=== PATIENT | female | born 2000 | race Hispanic/Latino ===

== ENCOUNTER 2022-04-10 20:42 | Emergency (ER) | payer OTHER ==
--- OUTSIDE RECORDS SUMMARY | 2022-04-10 20:57 | XMS REPORT | Continuity of Care Document ---
:2000 Author Organization [facility] [place] t Address [address] [place] [address] Care Team Providers Name Role Phone Pcp, Patient Does Not Have A Primary Care Physician [phone] Thien Lenz Attending Clinician Nurse, [facility] Exp [facility] Obgyn Attending Clinician Unavail able THIEN BORDEN Attending Clinician Unavailable Doctor Unassigned, [place] Attending Clinician Unavailable ANAYELI HUNG Attending Clinician Unavailable JENNIFER JULIO Attending Clinician Unavailable Rissa Fuentes DO Attending Clinician Jennifer Julio MD Attending Clinician Loree Goncalves MD Attending Clinician Romy Matias MD Attending Clinician RADHA VASQUEZ Attending Clinician Unavailable Radha Bullock Attending Clinician JOSE ALEAJNDRO HESS Attending Clinician Unavailable JOSE ALEJANDRO HESS Attending Clinician Unavailable Jose Alejandro Hess MD Attending Clinician ELDA ADHIKARI Attending Clinician Unavailable Elda Adhikari MD Attending Clinician Lab, [facility] Attending Clinician Unavailable Akinsidayna WHSHERRIEP, Anayeli C Attending Clinician Ultrasound, Ang-Mfm Attending Clinician Unavailable Herb La MD Attending Clinician HERB LA Attending Clinician Unavailable SHELBY HUTCHINSON Attending Clinician Unavailable Shelby Hutchinson MD Attending Clinician Ezequiel Jenkins MD Attending Clinician [phone] EZEQUIEL JENKINS Attending Clinician Unavailable Nurse, Adc Pob Immunization Attending Clinician Unavailable Jordan Gama DO Attending Clinician JORDAN GAMA Attending Clinician Unavailable Lucy Gama MD Attending Clinician Paulo Aviles DO Attending Clinician JENNIFER JULIO Admitting Clinician Unavailable Jennifer Julio MD Admitting Clinician JOSE ALEJANDRO HESS Admitting Clinician Unavailable Jose Alejandro Hess MD Admitting Clinician ELDA ADHIKARI Admitting Clinician Unavailable Elda Adhikari MD Admitting Clinician SHELBY HUTCHINSON Admitting Clinician Unavailable Shelby Hutchinson MD Admitting Clinician Payers Payer Name Policy Type Policy Number Effective Date Expiration Date S [facility] MEDICAID PENDING PENDING 2020 00:00:00 [place] [id number] 2020 00:00:00 Problems Condition Condition Condition Status Onset Resolution Last Treating Co mments Source Name Details Category Date Date Treatment Clinician Date Depression Depression Disease Active U nivers , , 3-16 ity of unspecifie unspecifie 00:00: Terrance rosenbaum d 00 Medical depression depression Br anch type type BMI BMI Disease Active Univers 33.0-33.9, 33.0-33.9, 2-28 it y of adult adult 00:00: [place] 00 Medical Branch Encounter Encounter Disease Active Uni vers for for 2-28 ity of initial initial 00:00: [place] prescripti prescripti 00 Me dical on of on of Branch vaginal vaginal ring ring hormonal hormonal contracept contracept ninfa ninfa Obstetrica Obstetrica Disease Active 2020-05 U nivers l l 2-27 [place] of laceration [place] [facility] Disease Active 2020-05 Univers (normal (normal 2-27 ity of spontaneou spontaneou [place] vaginal 00 [facility] delivery) delivery) Bran ch Single Single Disease Active 2020-05 Univers live live 2-27 ity of 00:00: [address] Anemia, Anemia, Disease Active 2020-05 Univers 2-26 it y of 00:00: [address] 39 weeks 39 weeks Disease Active 2020-05 Unive rs gestation gestation 2-24 ity of of of 00:00: [place] 00 [facility] UTI UTI Disease Active Overview: Univer s (urinary (urinary 12-02 Formattin ity of tract tract 00:00: g of this [place] infection) infection) 00 note Me dical during during might be Branch different from the original. neg cb Chlamydia Chlamydia Disease Active Overview: Univers infection infection 12-01 Formattin i ty of during during 00:00: g of this [place] 00 note [facility] might be Branch different from the original. Neg cb Anemia of Anemia of Disease Active Uni vers mother in mother in 11-30 ity of , , [place] antepartum antepartum 00 Me dical Branch Rubella Rubella Disease Active Overview: Univ ers non-immune non-immune 11-30 Formattin ity of status, status, 00:00: g of this [place] antepartum antepartum 00 note Me dical might be Branch different from the original. Address pp Susceptibl Susceptibl Disease Active Overview : Univers e to e to 11-30 Formattin ity of varicella varicella 00:00: [place] of this [place] (non-immun (non-immun 00 note Me dical e), e), might be Branch currently currently different from the original. Address pp Supervisio Supervisio Disease Active U nivers n of n of 11-29 ity of high-risk high-risk 00:[place] with with Branch insufficie insufficie nt nt care care Class 1 Class 1 Disease Active Univers obesity obesity 11-29 ity of with body with body [place] mass index mass index 00 Me dical (BMI) of (BMI) of Branch 33.0 to 33.0 to 33.9 in 33.9 in adult, adult, unspecifie unspecifie d obesity d obesity type, type, unspecifie unspecifie d whether d whether serious serious comorbidit comorbidit y present y present Allergies, Adverse Reactions, Alerts Allergy Allergy Status Severity Reaction(s) Onset Inactive Treating Comm ents Source Name Type Date Date Clinician PENICILL DRUG Active Rash Univers IN INGREDI 09-29 ity of 00:00: [place] 00 Medical Branch Penicill Propensi Active Rash Univer s in ty to 09-29 ity of adverse 00:00: [place] reaction 00 Medical s Branch Social History Social Habit Start Date Stop Date Quantity Comments Source History SDOH University o f Alcohol Std [place] Medical Drinks Branch History SDOH University o f Alcohol Binge [place] Medic al Branch History SDOH University o f Alcohol Frequency [place] M edical Branch Exposure to 2021-10-21 2021-10-31 Not sure University of SARS-CoV-2 00:00:00 15:06:00 [facility] (event) Branch Alcohol intake 2021-10-31 2021-10-31 Current drinker Unive rsity of 00:00:00 00:00:00 of alcohol [place] [facility] (finding) Branch Alcohol Comment 2021-07-04 2021-07-04 social Universit y of 00:00:00 00:00:00 [facility] Tobacco use and 2021-07-04 2021-07-04 Never used Universit y of exposure 00:00:00 00:00:00 [place] [facility] [place] History of 2020-09-11 Smoker University of tobacco use 00:00:00 [facility] Sex Assigned At 2000 2000 Universit y of 00:00:00 00:00:00 [facility] Smoking Status Start Date Stop Date Source Former smoker 2021-07-04 00:00:00 2021-07-04 00:00:00 [facility] Medical Branch Medications Ordered Filled Start Stop Current Ordering Indication Dosage Frequency Signature Comments Components Source Medication Medication Date Date Medication? Clinician (SIG) Name Name NUVARING Yes [id number] 1{each} Insert 1 Univers (NUVARING) 3-16 Each into ity of 0.12-0.015 00:00: vagina [place] mg/24 hr 00 once every Medic al vaginal month. Branch insert Insert vaginally and leave in place for 3 consecutiv e weeks, then remove for 1 week. NUVARING Yes [id number] 1{each} Insert 1 Univers (NUVARING) 3-16 Each into ity of 0.12-0.015 00:00: vagina [place] mg/24 hr 00 once every Medic al vaginal month. Branch insert Insert vaginally and leave in place for 3 consecutiv e weeks, then remove for 1 week. NUVARING Yes [id number] 1{each} Insert 1 Univers (NUVARING) 3-16 Each into ity of 0.12-0.015 00:00: vagina [place] mg/24 hr 00 once every Medic al vaginal month. Branch insert Insert vaginally and leave in place for 3 consecutiv e weeks, then remove for 1 week. NUVARING Yes [id number] 1{each} Insert 1 Univers (NUVARING) 3-16 Each into ity of 0.12-0.015 00:00: vagina [place] mg/24 hr 00 once every Medic al vaginal month. Branch insert Insert vaginally and leave in place for 3 consecutiv e weeks, then remove for 1 week. NUVARING Yes [id number] 1{each} Insert 1 Univers (NUVARING) 3-16 Each into ity of 0.12-0.015 00:00: vagina [place] mg/24 hr 00 once every Medic al vaginal month. Branch insert Insert vaginally and leave in place for 3 consecutiv e weeks, then remove for 1 week. NUVARING Yes [id number] 1{each} Insert 1 Univers (NUVARING) 3-16 Each into ity of 0.12-0.015 00:00: vagina [place] mg/24 hr 00 once every Medic al vaginal month. Branch insert Insert vaginally and leave in place for 3 consecutiv e weeks, then remove for 1 week. NUVARING Yes [id number] 1{each} Insert 1 Univers (NUVARING) 3-16 Each into ity of 0.12-0.015 00:00: vagina [place] mg/24 hr 00 once every Medic al vaginal month. Branch insert Insert vaginally and leave in place for 3 consecutiv e weeks, then remove for 1 week. ferrous 2020-05 Yes [id number] 325mg Take 1 Un angelica sulfate 325 2-26 tablet by ity of mg (65 mg 00:00: mouth 3 [place] iron) 00 (three) Medical tablet times Branch daily with meals. docusate 2020-05 Yes [id number] 240mg Take 1 U nivers calcium 240 2-26 capsule by it y of mg capsule 00:00: mouth once [place] 00 daily as Medical needed for Branch Constipati on. ferrous 2020-05 Yes [id number] 325mg Take 1 Un angelica sulfate 325 2-26 tablet by ity of mg (65 mg 00:00: mouth 2 [place] iron) 00 (two) Medical tablet times Branch daily. ibuprofen 2020-05 Yes [id number] 600mg Take 1 Univers 600 mg 2-26 tablet by ity of tablet 00:00: mouth [place] 00 every 6 Medical (six) Branch hours as needed (Pain). Take with food or milk. ferrous 2020-05 Yes [id number] 325mg Take 1 Un angelica sulfate 325 2-26 tablet by ity of mg (65 mg 00:00: mouth 3 [place] iron) 00 (three) Medical tablet times Branch daily with meals. docusate 2020-05 Yes [id number] 240mg Take 1 U nivers calcium 240 2-26 capsule by it y of mg capsule 00:00: mouth once [place] 00 daily as Medical needed for Branch Constipati on. ferrous 2020-05 Yes [id number] 325mg Take 1 Un angelica sulfate 325 2-26 tablet by ity of mg (65 mg 00:00: mouth 2 [place] iron) 00 (two) Medical tablet times Branch daily. ibuprofen 2020-05 Yes [id number] 600mg Take 1 Univers 600 mg 2-26 tablet by ity of tablet 00:00: mouth [place] 00 every 6 Medical (six) Branch hours as needed (Pain). Take with food or milk. ferrous 2020-05 Yes [id number] 325mg Take 1 Un angelica sulfate 325 2-26 tablet by ity of mg (65 mg 00:00: mouth 3 [place] iron) 00 (three) Medical tablet times Branch daily with meals. docusate 2020-05 Yes [id number] 240mg Take 1 U nivers calcium 240 2-26 capsule by it y of mg capsule 00:00: mouth once [place] 00 daily as Medical needed for Branch Constipati on. ferrous 2020-05 Yes [id number] 325mg Take 1 Un angelica sulfate 325 2-26 tablet by ity of mg (65 mg 00:00: mouth 2 [place] iron) 00 (two) Medical tablet times Branch daily. ibuprofen 2020-05 Yes [id number] 600mg Take 1 Univers 600 mg 2-26 tablet by ity of tablet 00:00: mouth [place] 00 every 6 Medical (six) Branch hours as needed (Pain). Take with food or milk. ferrous 2020-05 Yes [id number] 325mg Take 1 Un angelica sulfate 325 2-26 tablet by ity of mg (65 mg 00:00: mouth 3 [place] iron) 00 (three) Medical tablet times Branch daily with meals. docusate 2020-05 Yes [id number] 240mg Take 1 U nivers calcium 240 2-26 capsule by it y of mg capsule 00:00: mouth once [place] 00 daily as Medical needed for Branch Constipati on. ferrous 2020-05 Yes [id number] 325mg Take 1 Un angelica sulfate 325 2-26 tablet by ity of mg (65 mg 00:00: mouth 2 [place] iron) 00 (two) Medical tablet times Branch daily. ibuprofen 2020-05 Yes [id number] 600mg Take 1 Univers 600 mg 2-26 tablet by ity of tablet 00:00: mouth [place] 00 every 6 Medical (six) Branch hours as needed (Pain). Take with food or milk. ferrous 2020-05 Yes [id number] 325mg Take 1 Un angelica sulfate 325 2-26 tablet by ity of mg (65 mg 00:00: mouth 3 [place] iron) 00 (three) Medical tablet times Branch daily with meals. docusate 2020-05 Yes [id number] 240mg Take 1 U nivers calcium 240 2-26 capsule by it y of mg capsule 00:00: mouth once [place] 00 daily as Medical needed for Branch Constipati on. ferrous 2020-05 Yes [id number] 325mg Take 1 Un angelica sulfate 325 2-26 tablet by ity of mg (65 mg 00:00: mouth 2 [place] iron) 00 (two) Medical tablet times Branch daily. ibuprofen 2020-05 Yes [id number] 600mg Take 1 Univers 600 mg 2-26 tablet by ity of tablet 00:00: mouth [place] 00 every 6 Medical (six) Branch hours as needed (Pain). Take with food or milk. ferrous 2020-05 Yes [id number] 325mg Take 1 Un angelica sulfate 325 2-26 tablet by ity of mg (65 mg 00:00: mouth 3 [place] iron) 00 (three) Medical tablet times Branch daily with meals. docusate 2020-05 Yes [id number] 240mg Take 1 U nivers calcium 240 2-26 capsule by it y of mg capsule 00:00: mouth once [place] 00 daily as Medical needed for Branch Constipati on. ferrous 2020-05 Yes [id number] 325mg Take 1 Un angelica sulfate 325 2-26 tablet by ity of mg (65 mg 00:00: mouth 2 [place] iron) 00 (two) Medical tablet times Branch daily. ibuprofen 2020-05 Yes [id number] 600mg Take 1 Univers 600 mg 2-26 tablet by ity of tablet 00:00: mouth [place] 00 every 6 Medical (six) Branch hours as needed (Pain). Take with food or milk. ferrous 2020-05 Yes [id number] 325mg Take 1 Un angelica sulfate 325 2-26 tablet by ity of mg (65 mg 00:00: mouth 3 [place] iron) 00 (three) Medical tablet times Branch daily with meals. docusate 2020-05 Yes [id number] 240mg Take 1 U nivers calcium 240 2-26 capsule by it y of mg capsule 00:00: mouth once [place] 00 daily as Medical needed for Branch Constipati on. ferrous 2020-05 Yes [id number] 325mg Take 1 Un angelica sulfate 325 2-26 tablet by ity of mg (65 mg 00:00: mouth 2 [place] iron) 00 (two) Medical tablet times Branch daily. ibuprofen 2020-05 Yes [id number] 600mg Take 1 Univers 600 mg 2-26 tablet by ity of tablet 00:00: mouth [place] 00 every 6 Medical (six) Branch hours as needed (Pain). Take with food or milk. ascorbic Yes [id number] 500mg Take 1 U nivers acid, 7-27 tablet by ity of vitamin C, 00:00: mouth 3 [place] 500 mg 00 (three) Medical tablet times Branch daily. ascorbic Yes [id number] 500mg Take 1 U nivers acid, 7-27 tablet by ity of vitamin C, 00:00: mouth 3 [place] 500 mg 00 (three) Medical tablet times Branch daily. ascorbic Yes [id number] 500mg Take 1 U nivers acid, 7-27 tablet by ity of vitamin C, 00:00: mouth 3 [place] 500 mg 00 (three) Medical tablet times Branch daily. ascorbic Yes [id number] 500mg Take 1 U nivers acid, 7-27 tablet by ity of vitamin C, 00:00: mouth 3 [place] 500 mg 00 (three) Medical tablet times Branch daily. ascorbic Yes [id number] 500mg Take 1 U nivers acid, 7-27 tablet by ity of vitamin C, 00:00: mouth 3 [place] 500 mg 00 (three) Medical tablet times Branch daily. ascorbic Yes [id number] 500mg Take 1 U nivers acid, 7-27 tablet by ity of vitamin C, 00:00: mouth 3 [place] 500 mg 00 (three) Medical tablet times Branch daily. ascorbic Yes [id number] 500mg Take 1 U nivers acid, 7-27 tablet by ity of vitamin C, 00:00: mouth 3 [place] 500 mg 00 (three) Medical tablet times Branch daily. Yes [id number] 1{tbl} Take 1 Univers multivitami 7-26 09 tablet by ity of n ( 00:00: mouth [place] VITAMIN) 00 daily. Medical tablet Branch Yes [id number] 1{tbl} Take 1 Univers multivitami 7-26 09 tablet by ity of n ( 00:00: mouth [place] VITAMIN) 00 daily. Medical tablet Branch Yes [id number] 1{tbl} Take 1 Univers multivitami 7-26 09 tablet by ity of n ( 00:00: mouth [place] VITAMIN) 00 daily. Medical tablet Branch Yes [id number] 1{tbl} Take 1 Univers multivitami 7-26 09 tablet by ity of n ( 00:00: mouth [place] VITAMIN) 00 daily. Medical tablet Branch Yes [id number] 1{tbl} Take 1 Univers multivitami 7-26 09 tablet by ity of n ( 00:00: mouth [place] VITAMIN) 00 daily. Medical tablet Branch Yes [id number] 1{tbl} Take 1 Univers multivitami 7-26 09 tablet by ity of n ( 00:00: mouth [place] VITAMIN) 00 daily. Medical tablet Branch Yes [id number] 1{tbl} Take 1 Univers multivitami 7-26 09 tablet by ity of n ( 00:00: mouth [place] VITAMIN) 00 daily. Medical tablet Branch Immunizations Ordered Filled Immunization Date Status Comments [facility] Immunization Name Name [facility] 2021-10-31 Completed University of 00:00:00 [facility] HPV9 2021-10-31 Completed University of 00:00:00 [facility] HPV9 2021-06-24 Completed University of 00:00:00 [facility] HPV9 2021-06-24 Completed University of 00:00:00 [facility] HPV9 2021-06-24 Completed University of 00:00:00 [facility] HPV9 2021-06-24 Completed University of 00:00:00 [facility] HPV9 2021-06-24 Completed University of 00:00:00 [facility] HPV9 2021-06-24 Completed University of 00:00:00 [facility] HPV9 2021-06-24 Completed University of 00:00:00 [facility] Varicella 2021-05-02 Completed University of (varivax)(chicken 00:00:00 [place] M edical pox) Branch MMR 2021-05-02 Completed University of 00:00:00 [facility] HPV9 2021-05-02 Completed University of 00:00:00 [facility] Varicella 2021-05-02 Completed University of (varivax)(chicken 00:00:00 [place] M edical pox) Branch MMR 2021-05-02 Completed University of 00:00:00 [facility] Branch HPV9 2021-05-02 Completed University of 00:00:00 [facility] Varicella 2021-05-02 Completed University of (varivax)(chicken 00:00:00 [place] M edical pox) Branch MMR 2021-05-02 Completed University of 00:00:00 [facility] HPV9 2021-05-02 Completed University of 00:00:00 [facility] Varicella 2021-05-02 Completed University of (varivax)(chicken 00:00:00 [place] M edical pox) Branch MMR 2021-05-02 Completed University of 00:00:00 [facility] HPV9 2021-05-02 Completed University of 00:00:00 [facility] Varicella 2021-05-02 Completed University of (varivax)(chicken 00:00:00 [place] M edical pox) Branch MMR 2021-05-02 Completed University of 00:00:00 [facility] HPV9 2021-05-02 Completed University of 00:00:00 [facility] Varicella 2021-05-02 Completed University of (varivax)(chicken 00:00:00 [place] M edical pox) Branch MMR 2021-05-02 Completed University of 00:00:00 [facility] HPV9 2021-05-02 Completed University of 00:00:00 [facility] Varicella 2021-05-02 Completed University of (varivax)(chicken 00:00:00 [place] M edical pox) Branch MMR 2021-05-02 Completed University of 00:00:00 [facility] HPV9 2021-05-02 Completed University of 00:00:00 [facility] MMR 2021-05-01 Completed University of 00:00:00 [facility] MMR 2021-05-01 Completed University of 00:00:00 [facility] MMR 2021-05-01 Completed University of 00:00:00 [facility] MMR 2021-05-01 Completed University of 00:00:00 [facility] MMR 2021-05-01 Completed University of 00:00:00 [facility] MMR 2021-05-01 Completed University of 00:00:00 [facility] MMR 2021-05-01 Completed University of 00:00:00 [facility] TDAP 2021-02-14 Completed University of 00:00:00 [facility] SARS-COV-2 COVID-19 2021-02-14 Completed Unive rsity of PFIZER VACCINE 00:00:00 [facility] TDAP 2021-02-14 Completed University of 00:00:00 [facility] SARS-COV-2 COVID-19 2021-02-14 Completed Unive rsity of PFIZER VACCINE 00:00:00 [facility] TDAP 2021-02-14 Completed University of 00:00:00 [facility] SARS-COV-2 COVID-19 2021-02-14 Completed Unive rsity of PFIZER VACCINE 00:00:00 [facility] TDAP 2021-02-14 Completed University of 00:00:00 [facility] SARS-COV-2 COVID-19 2021-02-14 Completed Unive rsity of PFIZER VACCINE 00:00:00 [facility] TDAP 2021-02-14 Completed University of 00:00:00 [facility] SARS-COV-2 COVID-19 2021-02-14 Completed Unive rsity of PFIZER VACCINE 00:00:00 [facility] TDAP 2021-02-14 Completed University of 00:00:00 [facility] SARS-COV-2 COVID-19 2021-02-14 Completed Unive rsity of PFIZER VACCINE 00:00:00 [facility] TDAP 2021-02-14 Completed University of 00:00:00 [facility] SARS-COV-2 COVID-19 2021-02-14 Completed Unive rsity of PFIZER VACCINE 00:00:00 [facility] SARS-COV-2 COVID-19 2020-12-28 Completed Unive rsity of PFIZER VACCINE 00:00:00 [facility] SARS-COV-2 COVID-19 2020-12-28 Completed Unive rsity of PFIZER VACCINE 00:00:00 [facility] SARS-COV-2 COVID-19 2020-12-28 Completed Unive rsity of PFIZER VACCINE 00:00:00 [facility] SARS-COV-2 COVID-19 2020-12-28 Completed Unive rsity of PFIZER VACCINE 00:00:00 [facility] SARS-COV-2 COVID-19 2020-12-28 Completed Unive rsity of PFIZER VACCINE 00:00:00 [facility] SARS-COV-2 COVID-19 2020-12-28 Completed Unive rsity of PFIZER VACCINE 00:00:00 [facility] SARS-COV-2 COVID-19 2020-12-28 Completed Unive rsity of PFIZER VACCINE 00:00:00 [facility] Vital Signs Vital Name Observation Time Observation Value Comments Source Systolic blood 2021-10-31 20:06:00 113 mm[Hg] Univer sity of pressure [facility] Diastolic blood 2021-10-31 20:06:00 59 mm[Hg] Unive rsity of pressure [facility] Heart rate 2021-10-31 20:06:00 88 /min Universi ty [facility] Body temperature 2021-10-31 20:06:00 36.72 [facility] 2021-10-31 20:06:00 18 /min [facility] Body weight 2021-10-31 20:06:00 102.967 kg [facility] Systolic blood 2021-07-20 20:44:00 129 mm[Hg] Univer sity of [facility] Diastolic blood 2021-07-20 20:44:00 71 mm[Hg] Unive rsity of [facility] Heart rate 2021-07-20 20:44:00 77 /min [facility] Body temperature 2021-07-20 20:44:00 36.06 [facility] Respiratory rate 2021-07-20 20:44:00 16 /min [facility] Body height 2021-07-20 20:44:[address] [facility] Body weight 2021-07-20 20:44:00 94.303 kg [facility] BMI 2021-07-20 20:44:00 33.56 kg/m2 [facility] Procedures Procedure Date / Time Performed Performing Clinician Agus varela GARDASIL 9 (HPV 9V) 2021-10-31 20:07:40 Anayeli [facility] ASSIGNMENT OF BENEFITS 2021-10-31 19:55:43 Doctor Unassigned, No [facility] POCT TEST 2021-07-20 20:46:00 Thien Borden [facility] rsity of [facility] Encounters Start End Encounter Admission Attending Care Care Encounter Source Date/Time Date/Time Type Type Clinicians Facility Department ID 2021-03-06 Emergency [facility] [id number] Univers 21:23:17 ity [facility] 2021-11-06 2021-11-[address] [facility] [id number] Univers 00:00:00 00:00:00 Thien Larson LINE [employer]OOK [id number] ity of [facility] [id number] [place] as MATERNAL [id number] Med ical & CHILD [address] [place] [address] 2021-10-31 2021-10-31 Nurse Nurse, Nahum Rmchp Exp Cprit Obgyn U [facility] [id number] Univers 15:00:00 15:12:05 Visit Thien Borden LINE COOK [id number] ity of [place] [id number] [place] as MATERNAL [id number] Med ical & CHILD [address] [place] [address] 2021-10-31 2021-10-31 Outpatient R SUHAJOINT [facility] [id number] Univers 15:00:00 15:00:00 THIEN martey o f [facility] 2021-10-31 2021-10-31 Outpatient R [facility] [id number] Univers 15:00:00 15:00:00 ity of [facility] 2021-10-31 2021-10-31 Orders Doctor LAFLEUR 1.2.840.114 [id number] Univers 00:00:00 00:00:00 Only Unassigned, PORTIA 350.1.13.10 ity of [address]2.7.2.686 [place] [phone] [address] 2021-10-20 2021-10-20 Outpatient R [facility] [id number] Univers 14:00:00 14:00:00 ity of [facility] 2021-10-20 2021-10-20 [facility] [id number] Univers 14:00:00 14:00:00 TAYLORNDA ity o f [facility] 2021-09-14 2021-09-14 [facility] 1.2.840.114 [id number] Univers 00:00:00 00:00:00 Rosbulmaronda R LINE COOK 350.1.13.10 ity of [place] 4.2.7.2.686 [place] MATERNAL [phone] [facility] CHILD [address] [place] [address] 2021-09-01 2021-09-01 [facility] 1.2.840.114 [id number] Univers 00:00:00 00:00:00 Taylornda R LINE COOK 350.1.13.10 ity of [place]ION[place] 4.2.7.2.686 [place] MATERNAL [phone] [facility] & [address] 2021-07-20 2021-07-20 Office [facility] 1.2.840.114 [id number] Univers 15:45:00 15:57:13 Visit Ceferinoa R LINE COOK 350.1.13.10 ity of [place] 4.2.7.2.686 [place] MATERNAL [id number] [address] 2021-07-20 2021-07-20 Outpatient Marsha BORDEN [facility] [id number] Univers 15:45:00 15:57:13 TAYLORNDA ity o f [facility] 2021-07-20 2021-07-20 Outpatient Mars[facility] [id number] Univers 15:45:00 15:45:00 TAYLORNDA ity o f [facility] 2021-07-04 2021-07-04 Outpatient Marsha BORDEN [facility] [id number] Univers 14:45:00 15:28:08 TAYLORNDA ity o f [facility] 2021-07-04 2021-07-04 [facility] 1.2.840.114 [id number] Univers 14:45:00 15:28:08 Visit Taylornda R LINE COOK 350.1.13.10 ity of [place] 4.2.7.2.686 [place] MATERNAL [id number] [facility] ical & CHILD [address] [place] [address] 2021-07-04 2021-07-04 [facility] [id number] Univers 14:45:00 14:45:00 THIEN kemp o [facility] 2021-06-24 2021-06-24 Nurse Nurse, Nahum Rmchp Exp Cprit Obgyn U [facility] 1.2.840.114 [id number] Univers 15:00:00 15:33:23 Visit Thien Borden R LINE COOK 350.1.13.10 ity of [facility] 4.2.7.2.686 [place] MATERNAL [id number] [facility] & CHILD [address] [place] [address] 2021-06-24 2021-06-24 Out[facility] [id number] Univers 15:00:00 15:00:00 THIEN mtz [facility] 2021-06-01 2021-06-01 Outpatient [facility] [id number] Univers 12:45:00 12:45:00 ANAYELI martesandy o [facility] 2021-05-13 2021-05-13 Orders Doctor LAFLEUR 1.2.840.114 [id number] Univers 00:00:00 00:00:00 Only Unassigned, PORTIA 350.1.13.10 ity of [place] [facility] 4.2.7.2.686 [place] [id number] [facility] [address] 2021-04-29 2021-05-[address] [facility] CRISTINA [id number] Univers 08:14:00 12:16:00 JENNIFER kemp of [facility] 2021-04-29 2021-05-02 Hospital Rissa Fuentes 1.2.840.11 [id number] Univers 08:14:00 12:16:00 Encounter Jennifer Julio 350.1.13.1 0 ity of [facility] 4.2.7.2.686 [place] [phone] [facility] [address] 2021-04-30 2021-04-30 Anesthesia Loree Goncalves 1.2.8 40.114 [id number] Univers 03:18:00 16:49:00 Event Romy MatiasY 350.1.13.10 ity of [facility] 4.2.7.2.686 [place] [phone] [facility] [address] 2021-04-25 2021-04-25 Outpatient R [facility] [id number] Univers 12:45:00 13:13:34 RADHA martey [facility] 2021-04-25 2021-04-25 Routine [facility] 1.2.524.956 [id number] Univers 12:45:00 13:13:34 Radha Hinson LINE COOK 350.1.13.10 i ty of Visit [facility] 4.2.7.2.686 [place] as MATERNAL [phone] Med ical & CHILD [address] [place] [address] 2021-04-21 2021-04-22 Outpatient X JOSE ALEJANDRO HESS [facility] C[place]INA [id number] Univers 20:21:00 01:08:00 JOSE ALEJANDRO HESS [facility] 2021-04-21 2021-04-22 Hospital CIARRA Hess 1.2.840.114 [id number] Univers 20:21:00 01:08:00 Encounter Jose Alejandro PEARCE 350.1.13.10 ity of [facility] 4.2.7.2.686 [place] [phone] [facility] [address] 2021-04-21 2021-04-21 Orders Doctor CIARRA 1.2.840.114 [id number] Univers 00:00:00 00:00:00 Only Unassigned, PORTIA 350.1.13.10 ity of [place] [facility] 4.2.7.2.686 [place] [id number] [facility] [address] 2021-04-20 2021-04-20 Outpatient [address] BERNA [facility] [place] [id number] Univers 17:16:00 18:36:00 ELDA kemp [facility] 2021-04-20 2021-04-20 Emergency [facility] 1.2.746.263 [id number] Univers 17:16:00 18:36:00 Elda ROLLINS 350.1.13.10 ity of [place] 4.2.7.2.686 [facility] [phone] [place] [address] 2021-04-20 2021-04-20 Telephone Pedro MEYARELI 1.2.840.114 [id number] Univers 00:00:00 00:00:00 Radha Hinson LINE COOK 350.1.13.10 it y of REGIONAL 4.2.7.2.686 [place] MATERNAL [id number] [facility] ical & CHILD [address] [place] [address] 2021-04-19 2021-04-19 Manager Reimbursement Lab, KatlynRmchp [facility] 1.2.840. 114 [id number] Univers 08:30:00 08:59:19 Visit Radha Vasquez LINE COOK 350.1.13.10 ity of [facility] 4.2.7.2.686 [place] as MATERNAL [phone] [address] 2021-04-19 2021-04-19 Outpatient R PEDRO [facility] [id number] Univers 08:30:00 08:30:00 RADHA kemp [facility] 2021-04-19 2021-04-[address] [facility] 1.2.840.114 [id number] Univers 00:00:00 00:00:00 Anayeli Whelan LINE COOK 350.1.13.10 ity of [place]ION[place] 4.2.7.2.686 [place] MATERNAL [id number] [facility] CHILD [address] [place] [address] 2021-04-18 2021-04-[address] [facility] 1.2.685.531 [id number] Univers 16:20:05 16:40:48 Radha Hinson LINE COOK 350.1.13.10 i ty of Visit REGIONAL 4.2.7.2.686 [place] MATERNAL [id number] [facility] & CHILD [address] [place] [address] 2021-04-18 2021-04-18 Outpatient R PEDRO [facility] [id number] Univers 15:45:00 16:40:48 RAHDA kemp [facility] 2021-04-15 2021-04-15 Manager Reimbursement Ultrasound, [facility] 1.2 .840.114 [id number] Univers 09:55:15 10:40:15 Visit Herb La LINE COOK 350.1.13.10 ity [facility] 4.2.7.2.686 [place] as MATERNAL [phone] [facility] CHILD [address] [place] [address] 2021-04-15 2021-04-15 Outpatient P [facility] [id number] Univers 10:00:00 10:00:00 HERB kemp [facility] 2021-04-11 2021-04-11 Outpatient X SHELBY HUTCHINSON [facility] CRISTINA [id number] Univers 15:22:00 18:40:00 [facility] 2021-04-11 2021-04-11 Emergency Shelby Hutchinson [facility] 1.2.840.114 [id number] Univers 15:22:00 18:40:00 [facility] 350..13.10 i ty of [place] 4.2.7.2.686 [place] [facility] [phone] [address] 2021-04-07 2021-04-07 Out[facility] [id number] Univers 07:45:00 07:45:00 RADHA kemp [facility] 2021-03-23 2021-03-23 [facility] 1.2.539.260 [id number] Univers 07:52:50 08:24:33 Radha Hinson LINE COOK 350.1.13.10 i ty of Visit [facility] 4.2.7.2.686 [place] MATERNAL [phone] [facility] & [address] 2021-03-23 2021-03-23 Outpatient [facility] [id number] Univers 07:45:00 08:24:33 RADHA kemp [facility] 2021-03-10 2021-03-10 Manager Reimbursement Ultrasound, [facility] 1.2 .840.114 [id number] Univers 09:13:20 09:48:44 Visit Ezequiel Jenkins LINE COOK 350.1. 13.10 ity [facility] 4.2.7.2.686 [place] as MATERNAL [phone] Med ical & CHILD [address] [facility] 2021-03-10 2021-03-10 Outpatient Manoj JENKINS [facility] [id number] Univers 09:00:00 09:00:00 EZEQUIEL [facility] 2021-03-08 2021-03-[address] [facility] 1.2.478.723 [id number] Univers 09:02:58 09:37:42 Radha Hinson LINE COOK 350.1.13.10 i ty of Visit [facility] 4.2.7.2.686 [place] MATERNAL [phone] Med ical & CHILD [address] [facility] 2021-03-08 2021-03-08 Outpatient R PEDRO [facility] [id number] Univers 09:00:00 09:37:42 RADHA [facility] 2021-03-08 2021-03-08 Orders Doctor LAFLEUR 1.2.840.114 [id number] Univers 00:00:00 00:00:00 Only Unassigned, PORTIA 350.1.13.10 ity of [place] [facility] 4.2.7.2.686 [place] [phone] [facility] [address] [place] 2021-02-25 2021-02-25 Orders Doctor CIARRA 1.2.840.114 [id number] Univers 00:00:00 00:00:00 Only Unassigned, PORTIA 350.1.13.10 ity of [place] [facility] 4.2.7.2.686 [place] [id number] [facility] [address] [place] 2021-02-14 2021-02-14 Imm/Inj Nurse, Adc Pob Immunization [facility] 1.2.840.114 [id number] Univers 09:06:53 09:07:27 Visit Jordan Gama 350.1.13 .10 ity of [place].2.[place] Profess[place] [phone] Pa dical [address] 2021-02-14 2021-02-14 Outpatient Marsha GAMA [facility] [id number] Univers 09:00:00 09:00:00 JORDAN kemp [facility] 2021-02-14 2021-02-14 [facility] 1.2.502.359 [id number] Univers 08:12:47 08:57:38 Anayeli C LINE COOK 350.1.13.10 ity of Visit REGIONAL 4.2.7.2.686 [place] MATERNAL [phone] [facility] & [address] 2021-02-14 2021-02-14 Outpatient R ANABELL [facility] [id number] Univers 08:00:00 08:00:00 ANAYELI martey o f [facility] 2021-01-25 2021-01-25 Telephone [facility] 1.2.840.114 [id number] Univers 00:00:00 00:00:00 Anayeli C LINE COOK 350.1.13.10 ity of [place] 4.2.7.2.686 [place] MATERNAL [id number] [address] 2021-01-24 2021-01-24 [facility] 1.2.913.047 [id number] Univers 13:13:38 13:36:04 Anayeli C LINE COOK 350.1.13.10 ity of Visit REGIONAL 4.2.7.2.686 [place] MATERNAL [id number] [address] 2021-01-24 2021-01-24 Routine [facility] 1.2.598.823 [id number] Univers 13:13:38 13:36:04 Anayeli C LINE COOK 350.1.13.10 ity of Visit REGIONAL 4.2.7.2.686 [place] MATERNAL [id number] [facility] & [address] 2021-01-24 2021-01-24 Outpatient R ANABELL [facility] [id number] Univers 13:15:00 13:15:00 ANAYELI kemp o f [facility] 2021-01-24 2021-01-24 Outpatient Marsha GAMA [facility] [id number] Univers 13:00:00 13:00:00 JORDAN kemp [facility] 2021-01-18 2021-01-18 Outpatient [facility] [id number] Univers 11:50:00 11:50:00 ity of [facility] 2020-12-31 2020-12-31 Abstract [facility] [place] 1.2.840.114 [id number] Univers 00:00:00 00:00:00 Anayeli Whelan LINE COOK 350.1.13.10 ity of [facility] 4.2.7.2.686 [place] as MATERNAL [id number] [facility] CHILD [address] [place] [address] 2020-12-31 2020-12-[address] [facility] 1.2.840.114 [id number] Univers 00:00:00 00:00:00 Anayeli Whelan LINE COOK 350.1.13.10 ity of [facility] 4.2.7.2.686 [place] MATERNAL [id number] [facility] & CHILD [address] [place] [address] 2020-12-29 2020-12-29 Manager Reimbursement Ultrasound, [facility] 1.2 .840.114 [id number] Univers 13:48:01 14:48:01 Visit Lucy Gama LINE COOK 350.1.13.10 ity of [facility] 4.2.7.2.686 [place] as MATERNAL [phone] [facility] & [address] 2020-12-29 2020-12-29 Manager Reimbursement Ultrasound, [facility] 1.2 .840.114 [id number] Univers 13:48:01 14:48:01 Visit Lucy Gama LINE COOK 350.1.13.10 ity of [facility] 4.2.7.2.686 [place] MATERNAL [id number] [facility] & CHILD [address] [place] [address] 2020-12-29 2020-12-29 Outpatient P [facility] [id number] Univers 13:45:00 13:45:00 ity of [facility] 2020-12-28 2020-12-28 Imm/Inj Nurse, Louise Pob Immunization [facility] 1.2.840.114 [id number] Univers 11:54:40 11:55:49 Visit Jordan Gama 350.1.13 .10 ity [facility] 4.2.7.2.686 [place] [id number] Pa dical [address] 2020-12-28 2020-12-28 Outpatient Marsha GAMA [facility] [id number] Univers 11:50:00 11:50:00 JORDAN ity of [facility] 2020-12-27 2020-12-27 Routine [facility] 1.2.218.003 [id number] Univers 15:06:11 16:02:52 Anayeli C LINE COOK 350.1.13.10 ity of Visit [facility] 4.2.7.2.686 [place] MATERNAL [phone] [facility] CH[facility] [address] [place] [address] 2020-12-27 2020-12-27 Outpatient [facility] [id number] Univers 15:00:00 15:00:00 ANAYELI mtz [facility] 2020-12-27 2020-12-27 Outpatient [facility] [id number] Univers 15:00:00 15:00:00 ANAYELI kemp o tonya [facility] 2020-12-06 2020-12-06 Telephone [facility] 1.2.840.114 [id number] Univers 00:00:00 00:00:00 Anayeli C LINE COOK 350.1.13.10 ity of [place] 4.2.7.2.686 [place] MATERNAL [phone] [facility] CHILD [address] [place] [address] 2020-12-05 2020-12-05 Refill [facility] [place] 1.2.562.287 [id number] Univers 00:00:00 00:00:00 Anayeli C LINE COOK 350.1.13.10 ity of [place] 4.2.7.2.686 [place] MATERNAL [id number] [facility] & CHILD [address] [place] [address] 2020-12-02 2020-12-02 Refill [facility] 1.2.276.913 [id number] Univers 00:00:00 00:00:00 Anayeli C LINE COOK 350.1.13.10 ity of [place] 4.2.7.2.686 [place] MATERNAL [id number] [facility] CH[facility] [address] [place] [address] 2020-12-02 2020-12-02 Telephone [facility] 1.2.840.114 [id number] Univers 00:00:00 00:00:00 Anayeli C LINE COOK 350.1.13.10 ity of [place] 4.2.7.2.686 [place] MATERNAL [phone] [facility] & CHILD [address] [place] [address] 2020-12-01 2020-12-01 Telephone [facility] 1.2.840.114 [id number] Univers 00:00:00 00:00:00 Anayeli C LINE COOK 350.1.13.10 ity of [place] 4.2.7.2.686 [place] MATERNAL [phone] [facility] CHILD [address] [place] [address] 2020-11-30 2020-11-30 Telephone [facility] 1.2.840.114 [id number] Univers 00:00:00 00:00:00 Anayeli C LINE COOK 350.1.13.10 ity of [place] 4.2.7.2.686 [place] MATERNAL [id number] [facility] CHILD [address] [place] [address] 2020-11-29 2020-11-29 Initial [facility] 1.2.603.253 [id number] Univers 08:23:32 09:33:54 Anayeli C LINE COOK 350.1.13.10 ity of Visit [place]ION[place] 4.2.7.2.686 [place] MATERNAL [id number] [facility] & CHILD [address] [place] [address] 2020-11-29 2020-11-29 Out[facility] [id number] Univers 08:00:00 08:00:00 ANAYELI kemp o f [facility] 2020-11-29 2020-11-29 Orders Doctor LAFLEUR 1.2.840.114 [id number] Univers 00:00:00 00:00:00 Only Unassigned, PORTIA 350.1.13.10 ity of [place] [facility] 4.2.7.2.686 [place] [phone] [facility] [address] 2020-09-29 2020-09-29 Emergency [facility] 1.2.813.148 [id number] Univers 09:23:00 11:37:00 Paulo Rollins 350.1.13.10 i ty alek [place]2.[place].2.686 [place] [phone] [place] [address] [place] 2020-09-28 2020-09-28 Outpatient Mars[facility] [id number] [facility] 09:30:00 09:30:00 RADHA justo of [facility] 2020-09-28 2020-09-28 Orders Doctor CIARRA 1.2.840.114 [id number] Univers 00:00:00 00:00:00 Only Unassigned, PORTIA 350.1.13.10 ity of [place] [facility] 4.2.7.2.686 [place] [phone] [address] Results Test Description Test Time Test Comments Results Result Comments Source POCT TEST 2021-07-20 20:46:00 Test Item Value Reference Range Interpretation Comme nts POCT PREG (test code = 1605) Negative On board controls acceptable with C Line (test code = 3574) Yes POCT PREG LOT # (test code = 3575) POCT PREG TEST DATE (test code = 3576) [facility] [id number] 20:46:00 Test Item Value Reference Range Interpretation Comments POCT PREG (test code = 1605) Negative On board controls acceptable with C Yes Line (test code = 3574) POCT PREG LOT # (test code = 3575) POCT PREG TEST DATE (test code = 3576) [facility]
--- NOTE | 2022-04-10 22:20 | ER ---
Nurse's Notes [facility] Name: Yolie Weeks Age: 21 yrs Sex: Female : 2000 Arrival Date: 04/10/2022 Time: 21:00 Bed Waiting Private MD: Diagnosis: ED Course: 04/10 21:00 Patient arrived in ED. bp1 21:45 Shahzad Mistry PA is PHCP. cp 21:45 Luca Steele MD is Attending Physician. cp Administered Medications: No medications were administered Outcome: 22:19 Patient left the ED. bb Signatures: Peggy Oviedo RN RN bb Shahzad Msitry PA PA cp Heidy Robin bp1
== END 2022-04-10 22:19 | disposition left against medical advice (07) ==
LOC: ER 20:42
DX: Z02.9 Encounter for administrative examinations, unspecified (principal)

== ENCOUNTER 2024-05-02 15:43 | Emergency (ER) | payer OTHER, SELFPAY ==
[2024-05-02] MEDS ORDERED: NA CHLORIDE 0.9% 500 ML ONE (16:26)
[2024-05-02] MEDS ORDERED: ONDANSETRON 4 MG/2 ML VIAL ONE (16:26)
[2024-05-02 16:32] LABS: Absolute Basophils 0.1 K/uL (0-0.5); Absolute Eosinophils 0.3 K/uL (0-0.5); Absolute Lymphocytes (CBC) 2.6 K/uL (0.7-4.9); Absolute Monocytes 0.5 K/uL (0.1-1.3); Basophils % 0.7 % (0-1.3); Eosinophils % 3.6 % (0-4.4); Hematocrit 35.9 % (36.0-45.0); Hemoglobin 11.3 g/dL (12.0-15.0); Lymphocytes % 30.7 % (15.3-44.8); MCH 22.8 pg (27.0-35.0); MCHC 31.4 g/dL (32.0-36.0); MCV 72.6 fL (80-100); Monocytes % 5.5 % (3.3-12.3); Neutrophils % 59.5 % (41.7-73.7); Platelets 327 thou/uL (152-406); RBC Red Blood Cell Count 4.94 M/uL (3.86-4.86); Red Cell Distribution Width 16.4 % (12.1-15.2)
[2024-05-02 16:40] LABS: Specific Gravity > 1.030 (1.005-1.030); Urine Bacteria None Seen /HPF (<20); Urine Bilirubin NEGATIVE (Negative); Urine Blood Negative (Negative); Urine Clarity Extremely Turbid (Clear); Urine Color Light-Yellow (Yellow); Urine Culture Reflex Order NOT NEEDED; Urine Glucose NEGATIVE (Negative); Urine Ketones NEGATIVE (Negative); Urine Micro Reflex YN NO BILL MICROSCOPIC; Urine Mucus Slight /HPF (None Seen); Urine Nitrite NEGATIVE (Negative); Urine Protein TRACE (Negative); Urine RBC <5 /HPF (None Seen); Urine Urobilinogen 1+ (Normal); Urine WBC <5 /HPF (<5); Urine WBC Clump Rare /HPF (None Seen); Urine Yeast (Budding) Trace /HPF (None Seen)
[2024-05-02 16:45] LABS: Anion Gap 7.8 mEq/L (5.0-15.0); Potassium 3.8 mEq/L (3.5-5.1)
--- NOTE | 2024-05-02 16:57 | EDPHYS ---
Physician Documentation [facility] Name: Yolie Weeks Age: 23 yrs Sex: Female : 2000 Arrival Date: 05/02/2024 Time: 15:43 Bed 17 Private MD: ED Physician Selvin Dangelo HPI: 05/02 16:11 This 23 yrs old Female presents to ER via Ambulatory with complaints of ec2 Dizziness. 16:11 Patient arrives today for evaluation of dizziness. Onset of several days. History of ec2 similar types of episodes. Reports no specific alleviating or exacerbating factors. Reports that she believes is stress related. Reports otherwise some associated nausea, no vomiting. No cough or cold symptoms. Has had some bouts of diarrhea recently. No urinary complaints. LMP was greater than 1 month ago.. Historical: - Allergies: 16:10 PENICILLINS; db - PMHx: 16:10 None; db - Immunization history:: Adult Immunizations unknown. - Infectious Disease History:: Denies. - Social history:: Smoking status: Reported history of juuling and/or vaping. ROS: 16:11 Constitutional: as per hpi ec2 Exam: 16:11 Constitutional: GEN: NAD Head: atraumatic Eyes: EOMI Ears: External ears are ec2 normal. CV: regular rate LUNGS: no respiratory distress ABD: non-distended SKIN: no evidence of rashes MSK: no evidence of trauma. Neuro: Cranial nerves II through XII intact, strength intact upper extremities, no pronator drift, normal jedesm-kfeh-fsbigb. Vital Signs: 16:00 BP 126 / 73; Pulse 74; Resp 16; Temp 98.4; Pulse Ox 100% ; Height 5 ft. 7 in. ; db 16:30 BP 101 / 60; Pulse 55; Resp 15; Pulse Ox 100% ; me1 17:00 BP 108 / 55; Pulse 55; Resp 15; Temp 98.4; Pulse Ox 100% ; me1 MDM: 16:05 Medical Screening Exam initiated ec2 16:11 Data reviewed: vital signs, nurses notes. ED course: Patient arrives today for ec2 evaluation of dizziness. Examination yields an intact neurologic exam. Will obtain lab work, urine studies and EKG. Differential includes peripheral vertigo, electrolyte disturbances, anemia, arrhythmia. Doubt central vertigo.. 16:34 ED course: EKG independently reviewed and interpreted by me, shows normal sinus rhythm, ec2 rate of 63, no acute ST segment elevations, intervals are nonactionable, benign early repolarization noted.. 16:56 ED course: Lab work unrevealing. Will discharge home. Return precautions given. Suspect ec2 peripheral vertigo. . 05/02 16:06 Order name: Basic Metabolic Panel; Complete Time: 16:56 ec2 05/02 16:06 Order name: CBC with Diff; Complete Time: 16:45 ec2 05/02 16:06 Order name: Test, Serum; Complete Time: 16:56 ec2 05/02 16:06 Order name: UAM; Complete Time: 16:45 ec2 05/02 16:06 Order name: Cardiac monitoring; Complete Time: 16:33 ec2 05/02 16:06 Order name: EKG - Nurse/Tech; Complete Time: 16:33 ec2 05/02 16:06 Order name: IV Saline Lock; Complete Time: 16:24 ec2 05/02 16:06 Order name: Labs collected and sent; Complete Time: 16:24 ec2 05/02 16:06 Order name: O2 Per Protocol; Complete Time: 16:24 ec2 05/02 16:06 Order name: O2 Sat Monitoring; Complete Time: 16:24 ec2 Administered Medications: 16:38 Drug: NS 0.9% IV 500 ml 500 ml IV at 1 bolus once; to be given as a bolus over 30 me1 minutes Volume: 500 ml; Route: IV; Rate: 1 bolus; Site: right antecubital; 17:23 Follow up: Response: No adverse reaction; IV Status: Completed infusion; IV Intake: me1 500ml 16:38 Drug: Ondansetron IVP 4 mg IVP once; over 2 minutes Route: IVP; Site: right antecubital;me1 17:23 Follow up: Response: Nausea is decreased me1 Disposition Summary: 05/02/24 16:57 Discharge Ordered Notes: Location: Home ec2 Condition: Stable ec2 Diagnosis - Dizziness and giddiness ec2 Followup: ec2 - With: Private Physician - When: - Reason: Re-evaluation by your physician Discharge Instructions: - Discharge Summary Sheet ec2 - Dizziness, [id number]-un-Kjjq ec2 Forms: - Work release form me1 - Medication Reconciliation Form ec2 - Antibiotic Education ec2 - Prescription Opioid Use ec2 - Patient Portal Instructions ec2 - Leadership Thank You Letter ec2 Prescriptions: - Meclizine 25 mg Oral Tablet - take 1 tablet ORAL route every 8 hours As needed; 30 tablet; Refills: 0, ec2 Product Selection Permitted Signatures: Dispatcher [employer] Dalila Alexis, RN JENNIFER db Jaylin King RN RN me1 Selvin Dangelo MD MD ec2 Corrections: (The following items were deleted from the chart) 16:06 16:06 BASIC METABOLIC PANEL+C.LAB.BRZ ordered. EDMS EDMS 16: 16:06 CBC+H.LAB.BRZ ordered. EDMS EDMS 16:06 16:06 TEST, SERUM+SC.LAB.BRZ ordered. EDMS EDMS 16:06 16:06 Urinalysis W/Microscopic+U.LAB.BRZ ordered. EDMS EDMS
--- NOTE | 2024-05-02 16:57 | ER ---
Nurse's Notes [facility] Name: Yolie Weeks Age: 23 yrs Sex: Female : 2000 Arrival Date: 05/02/2024 Time: 15:43 Bed 17 Private MD: Diagnosis: Dizziness and giddiness Presentation: 05/02 16:00 Chief complaint: Patient states: DIZZINESS INCREASED WITH AMBULATION WITH NAUSEA AND db DIARRHEA X 3 DAYS. PT AMBULATORY WITH STEADY GATE. Coronavirus screen: Client denies travel out of the [place] in the last 14 days. At this time, the client does not indicate any symptoms associated with coronavirus-19. Ebola Screen: Patient negative for fever greater than or equal to 101.5 degrees Fahrenheit, and additional compatible Ebola Virus Disease symptoms Patient denies exposure to infectious person. Patient denies travel to an Ebola-affected area in the 21 days before illness onset. No symptoms or risks identified at this time. Initial Sepsis Screen: Does the patient meet any 2 criteria? No. Patient's initial sepsis screen is negative. Does the patient have a suspected source of infection? No. Patient's initial sepsis screen is negative. Risk Assessment: Do you want to hurt yourself or someone else? Patient reports no desire to harm self or others. Onset of symptoms was April 29, 2024. 16:00 Method Of Arrival: Ambulatory db 16:00 Acuity: TRU 3 db Triage Assessment: 16:10 General: Appears in no apparent distress. comfortable, Behavior is calm, cooperative. db Pain: Denies pain. Neuro: Level of Consciousness is awake, alert, obeys commands, Oriented to person, place, time, situation. Respiratory: Airway is patent Respiratory effort is even, unlabored, Respiratory pattern is regular, symmetrical. GI: Reports diarrhea, nausea. Historical: - Allergies: 16:10 PENICILLINS; db - PMHx: 16:10 None; db - Immunization history:: Adult Immunizations unknown. - Infectious Disease History:: Denies. - Social history:: Smoking status: Reported history of juuling and/or vaping. Screenin:15 [facility] ED Fall Risk Assessment (Adult) History of falling in the last 3 months, me1 including since admission No falls in past 3 months (0 pts) Confusion or Disorientation No (0 pts) Intoxicated or Sedated No (0 pts) Impaired Gait No (0 pts) Mobility Assist Device Used No (0 pt) Altered Elimination No (0 pt) Score/Fall Risk Level 0 - 2 = Low Risk Maintained a safe environment, Provided non-skid footwear, Hourly rounding (assess needs \T\ fall precautionary measures) done. Abuse screen: Denies threats or abuse. Nutritional screening: No deficits noted. Tuberculosis screening: No symptoms or risk factors identified. Assessment: 16:15 General: Appears comfortable, well groomed, well developed, well nourished, Behavior is me1 calm, cooperative, appropriate for age, Reports DIZZINESS INCREASED WITH AMBULATION WITH NAUSEA AND DIARRHEA X 3 DAYS. PT AMBULATORY WITH STEADY GATE. Pain: Denies pain. Neuro: Level of Consciousness is awake, alert, obeys commands, Oriented to person, place, time, situation, Appropriate for age Reports dizziness. Cardiovascular: Patient's skin is warm and dry. Respiratory: Airway is patent Respiratory effort is even, unlabored, Respiratory pattern is regular, symmetrical. GI: Reports diarrhea, nausea, since x3 days. : No signs and/or symptoms were reported regarding the genitourinary system. EENT: No signs and/or symptoms were reported regarding the EENT system. Derm: Skin is intact, is healthy with good turgor, Skin is pink, warm \T\ dry. Musculoskeletal: No signs and/or symptoms reported regarding the musculoskeletal system. Vital Signs: 16:00 BP 126 / 73; Pulse 74; Resp 16; Temp 98.4; Pulse Ox 100% ; Height 5 ft. 7 in. ; db 16:30 BP 101 / 60; Pulse 55; Resp 15; Pulse Ox 100% ; me1 17:00 BP 108 / 55; Pulse 55; Resp 15; Temp 98.4; Pulse Ox 100% ; me1 ED Course: 15:46 Patient arrived in ED. mr 15:58 Selvin Dangelo MD is Attending Physician. ec2 16:10 Triage completed. db 16:10 Arm band placed on Patient placed in an exam room. db 16:13 Jaylin King, JENNIFER is Primary Nurse. me1 16:15 Patient has correct armband on for positive identification. Bed in low position. Call me1 light in reach. Side rails up X2. Provided Education on: POC. Verbalized understanding.. Client placed on continuous cardiac and pulse oximetry monitoring. NIBP monitoring applied. company controller on. Pulse ox on. NIBP on. 16:15 No provider procedures requiring assistance completed. me1 16:24 Initial lab(s) drawn, by me, sent to lab. Urine collected: clean catch specimen, me1 cloudy. Inserted saline lock: 22 gauge in right antecubital area, using aseptic technique. 16:24 UAM Sent. me1 16:24 Test, Serum Sent. me1 16:25 Basic Metabolic Panel Sent. me1 16:25 CBC with Diff Sent. me1 Administered Medications: 16:38 Drug: NS 0.9% IV 500 ml 500 ml IV at 1 bolus once; to be given as a bolus over 30 me1 minutes Volume: 500 ml; Route: IV; Rate: 1 bolus; Site: right antecubital; 17:23 Follow up: Response: No adverse reaction; IV Status: Completed infusion; IV Intake: me1 500ml 16:38 Drug: Ondansetron IVP 4 mg IVP once; over 2 minutes Route: IVP; Site: right antecubital;me1 17:23 Follow up: Response: Nausea is decreased me1 Medication: 16:15 VIS not applicable for this client. me1 Intake: 17:23 IV: 500ml; Total: 500ml. me1 Outcome: 16:57 Discharge ordered by . ec2 17:23 Patient left the ED. me1 Signatures: ChadwickEmerita loya, Reg Reg HernandezDalila, RN RN db Jaylin King RN RN me1 Selvin Dangeol MD MD ec2 Corrections: (The following items were deleted from the chart) 17:10 16:00 Chief complaint: Patient states: DIZZINESS INCREASED WITH AMBULATION WITH NAUSEA me1 AND DIARRHEA X 3 DAYS. PT AMBULATORY WITH STEADY GATE db
[2024-05-02 17:51] VITALS: TEMP 98.4; O2SAT 100
[2024-05-02 17:56] VITALS: BP 108/55
--- NOTE | 2024-05-05 11:18 | EKG ---
Test Date: 2024-05-02 Test Time: 16:30:24 Furniture Mover Driver: MEASUREMENT RESULTS: Intervals: Rate: 63 MT: 140 QRSD: 82 QT: 414 QTc: 423 [place]: P: 31 MT: 140 QRS: 85 T: 92 INTERPRETIVE STATEMENTS: Age and gender specific ECG analysis Normal sinus rhythm ST elevation, consider inferior injury or acute infarct Vs early repolarization Abnormal ECG No previous ECG available for comparison Electronically Signed On 05-05-24 11:13:54 KILN DRAWER by Corona Ji
== END 2024-05-02 17:23 | disposition home or self-care (01) ==
LOC: ER 15:43
DX: R42 Dizziness and giddiness (principal)
CPT/HCPCS: 36415; 80048; 81001; 84703; 85025; 93005; 96361; 96374; 99284; J2405; J7040